=== PATIENT | male | born 1980 | race Caucasian/White ===

== ENCOUNTER 2024-09-21 07:35 | Emergency (ER) | payer OTHER, SELFPAY ==
[2024-09-21 07:40] VITALS: BP 158/87
[2024-09-21 07:57] VITALS: BMI 27.8
[2024-09-21 08:00] VITALS: BP 135/89
--- NOTE | 2024-09-21 08:11 | ED.GENMED ---
History of Present Illness
General
Chief Complaint: Abdominal Symptoms
Time Seen by Provider: 09/21/24 07:58
History of Present Illness
History of Present Illness:
43-year-old male with no significant past medical history presents the emergency department for evaluation of left inguinal pain and bulging for the past several days associated with constipation. He notes that he has felt a lump or bulge to the
groin for the past several weeks but it had not been painful until recently. Also reports left-sided low back pain with radicular symptoms into the left leg. No left leg paresthesias. No fevers or chills.
Past History
Past History
ED Past Medical History: None
ED Past Surgical History: None
Social History
Tobacco: Non-smoker
Alcohol: Occasional
Personal:
Living: with family
Employment: Employed
Review of Systems
Review of Systems
Allergies reviewed?: Yes
All Other Systems: ROS reviewed and negative except as documented in HPI and ROS
Phy Exam
Physical Exam
Physical Exam:
GEN: Well appearing, NAD, WDWN
HEENT: Oral mucosa moist, no scleral icterus
Cardiac: Regular rate
Lung: No respiratory distress, no tachypnea
Abdomen: Soft, grossly nontender.
: Soft reducible mass to the left inguinal region likely hernia, no rigidity, no adenopathy. No testicular or scrotal tenderness
MSK: No gross deformity or injuries
Skin: Good color, no pallor or jaundice, no rashes
Neuro: AO x3, moves all extremities freely
Psych: Calm, cooperative
Course
Orders/Labs/Results
Orders:
Orders
09/21/24 08:10
US Groin (Imaging Only) LT Urgent
Comment:
Reason For Exam: painful lump
09/21/24 07:52
09/21/24 07:52
Vital Signs
Initial and Last Documented VS:
Initial Vital Signs
Temp Pulse Resp BP Pulse Ox
98.6 F 72 16 158/87 98
09/21/24 07:40 09/21/24 07:40 09/21/24 07:40 09/21/24 07:40 09/21/24 07:40
Last Documented Vital Signs
Temp Pulse Resp BP Pulse Ox
98.6 F 76 18 125/70 99
09/21/24 07:40 09/21/24 09:14 09/21/24 09:14 09/21/24 09:14 09/21/24 09:14
MDM/Problems Addressed
MDM/Problems Addressed:
Patient's ultrasound is unremarkable, no evidence for hernia. Likely musculoskeletal etiology, discussed supportive care
*Pulse Oximetry
SaO2: 96
Oxygen Mode of Delivery: Room air
Patient hypoxic: no
*Critical Care Note
Total Time (30-74mins, 75-104mins- exclusive of procedures): Not Applicable
ED Attending Note
-
Portions of this chart may have been created with voice recognition software.� Occasional wrong word or��sound alike� substitutions may have occurred due to the inherent limitations of voice recognition software.
Discharge Plan
Departure
Patient Disposition: Home (Routine Discharge)
Date of Disposition: 09/21/24
Time of Disposition: 09:32
Patient with high blood pressure during this ER visit?: No
Discharge Problem:
Left groin pain
Instructions: Groin Strain ED
Prescriptions:
No Action
ondansetron 4 MG tablet,disintegrating
4 mg PO TIDPRN PRN (Reason: nausea/vomiting) Qty: 8 0RF
prednisone 10 MG tablet
10 mg PO .TAPER Qty: 45 0RF
Rx Instructions:
Take 50mg daily x3days, 40mg daily x3days,
30mg daily x3days, 20mg daily x3days,
10mg daily x3days
oxycodone-acetaminophen 5 MG/325 MG tablet
1 tab PO Q4HPRN PRN (Reason: pain) Qty: 12 0RF
Referrals:
Ken Chery DO [Family Provider, Family Practice]
Activity Restrictions/Additional Instructions:
Take 400-600mg ibuprofen every 6-8 hours for pain control
Ice often after vigorous activity
Use over the counter laxative such as Miralax to improve your bowel movements
Interventions
Interventions:
*Risk Screen - Suicide Last Done: 09/21/24 07:40
*General Assessment Last Done: 09/21/24 07:57
*Neglect/Abuse Screening Last Done: 09/21/24 07:40
*ED- Fall Risk Assessment Last Done: 09/21/24 07:57
*ED COVID-19 Vaccine History Last Done: 09/21/24 08:02
OS-Yrcrqa-Vpygkaumln Assessment Last Done: 09/21/24 07:57
Discharge Date and Time
Print Language: MAURITANIAN
[2024-09-21 09:13] VITALS: BP 125/70
[2024-09-21 09:14] VITALS: BP 125/70
--- NOTE | 2024-09-21 10:25 | EDRN ---
Patient discharged by Jerald Cho PA-C.
== END 2024-09-21 10:00 | disposition home or self-care (01) ==
LOC: EMR 07:35
PROVIDERS: EMERGENCY PHYSICIAN Emergency Medicine; FAMILY PHYSICIAN Family Medicine
DX: R10.32 Left lower quadrant pain (principal)
CPT/HCPCS: 99284; 76882

== ENCOUNTER 2024-12-17 16:24 | Emergency (ER) | payer OTHER, SELFPAY ==
[2024-12-17 16:26] VITALS: BP 144/87
[2024-12-17 16:44] LABS: Hematocrit 46.0 % (39.0-52.0); Hemoglobin 15.3 g/dL (13.0-18.0); Mean Corp Hgb Conc. 33.3 g/dL (33.0-37.0); Mean Corpuscular Volume 89.8 fL (80.0-94.0); Nucleated Red Blood Cells % 0 % (-); Platelet Count 287 10^3/uL (130-400); Red Cell Dist. Width 11.6 % (11.5-14.5)
[2024-12-17 16:59] LABS: Urine Character Clear (Clear)
[2024-12-17 17:06] LABS: ALT (SGPT) 55 U/L (0-50); AST (SGOT) 38 U/L (17-59); Albumin 5.1 g/dl (3.5-5.0); Alkaline Phosphatase 57 U/L (38-126); Blood Urea Nitrogen 13 mg/dl (9-20); Calcium 11.6 mg/dl (8.4-10.2); Carbon Dioxide 30 mmol/L (22-30); Chloride 102 mmol/L (98-107); Glucose 96 mg/dl (70-99); Potassium 4.3 mmol/L (3.5-5.1); Sodium > 250 mmol/L (135-145); Total Protein 8.1 g/dl (6.3-8.2); eGFR > 60.00
--- NOTE | 2024-12-17 18:05 | ED.GENMED ---
History of Present Illness
General
Chief Complaint: Abdominal Pain
Source: patient
Exam Limitations: none
Time Seen by Provider: 12/17/24 17:56
Nursing documentation reviewed up to this point in time: agreed with
History of Present Illness
History of Present Illness:
The patient is a pleasant 44-year-old man who comes in with complaints of left lower abdominal pain for 3 days. Patient reports he feels bloated. He has also noticed increased frequency of urination. He reports nausea and occasional diarrhea. He
denies fever. Patient reports he is having a routine colonoscopy this week.
Past History
Past History
ED Past Medical History: Psychiatric (Anxiety)
ED Past Surgical History: None
Social History
Tobacco: Non-smoker
Alcohol: Occasional
Drug: None
Personal:
Living: with family
Employment: Employed
Family History
Family History: Other
Review of Systems
Review of Systems
Allergies reviewed?: Yes
Constitutional: Reports no symptoms
EENT: Reports no symptoms
Respiratory: Reports no symptoms
Cardiac: Reports no symptoms
ABD/GI: Reports abdominal pain, nausea and diarrhea
: Reports frequency
Musculoskeletal: Reports no symptoms
Skin: Reports no symptoms
Neurological: Reports no symptoms
Endocrine: Reports no symptoms
Hematologic/Lymphatic: Reports no symptoms
Psychiatric: Reports no symptoms
Phy Exam
Physical Exam
Physical Exam:
Physical Exam
General: no apparent distress, not acutely ill. Well and comfortable appearing, smiling
Neck: supple. no meningeal signs. normal psoterior pharynx
Heart: s1/s2 regular rate and rhythm, no murmur. equal radial pulses.
Lungs: no acute respiratory distress. clear bilaterally
Abdomen: Soft. Left lower quadrant tenderness. No flank tenderness. No rebound or guarding. No pulsatile mass.
Neuro: alert and oriented. no focal neurological deficits
Skin: no rash
Psychiatric: well kept. interactive and cooperative
Extremities: no edema. no calf tenderness. negative homans. good distal pulses
Course
Orders/Labs/Results
Orders:
Orders
12/17/24 16:37
Complete Blood Count/With Diff Urgent
Comprehensive Metabolic Panel Urgent
Urinalysis Reflex To Culture Urgent
Date Specimen was Collected: 12/17/24
Time Specimen was Collected: 16:31
12/17/24 18:08
Sodium Urgent
12/17/24 18:13
CT Abd/pelvis W Iv Cont Urgent
Comment:
Reason For Exam: LLQ pain
Abnormal Lab Results
12/17/24
16:37
Absolute Monos (auto) 0.9 H 10^3/uL
(0.1-0.6)
Monocytes % 12.9 H %
(1.7-9.3)
Sodium > 250 H* mmol/L
(135-145)
Calcium 11.6 H mg/dl
(8.4-10.2)
ALT 55 H U/L
(0-50)
Albumin 5.1 H g/dl
(3.5-5.0)
12/17/24 16:37
12/17/24 18:08
Vital Signs
Initial and Last Documented VS:
Initial Vital Signs
Temp Pulse Resp BP Pulse Ox
98.5 F 86 16 144/87 99
12/17/24 16:26 12/17/24 16:26 12/17/24 16:26 12/17/24 16:26 12/17/24 16:26
Last Documented Vital Signs
Temp Pulse Resp BP Pulse Ox
98.5 F 70 16 133/92 99
12/17/24 16:26 12/17/24 20:15 12/17/24 20:15 12/17/24 19:19 12/17/24 18:14
MDM/Problems Addressed
Differential Diagnosis Includes:
Acute diverticulitis, renal colic, aortic aneurysm
MDM/Problems Addressed:
Patient presents with acute left lower abdominal pain
Acute Exacerbation and/or Progression of Chronic Illness:
Patient is elevated blood pressure, likely due to anxiety
Acute Exacerbation and/or Progression of Chronic Illness: HTN
*Radiology
Radiology exam reviewed: radiology read reviewed
*Pulse Oximetry
SaO2: 99
Oxygen Mode of Delivery: Room air
Patient hypoxic: no
*EKG
Interpreted by ED Provider?: NA
*Social Media Manager Interpretation
Rate: normal
Interpretation: normal
Rhythm: sinus
*Critical Care Note
Total Time (30-74mins, 75-104mins- exclusive of procedures): Not Applicable
Data Reviewed
Review of Other/Old Records Reveals: Radiology Studies (Groin ultrasound reviewed from 11/2024 which shows no acute disease)
Patient Management
Social determinants of health affecting care: Living situation and Strong social support
Escalation/DeEscalation of care consider admission/obs:
Patient remains well-appearing. Urine shows no sign of hematuria or infection. CT shows no sign of bowel obstruction or acute diverticulitis. Patient has follow-up with his GI doctor this for routine colonoscopy. Patient encouraged to
share his symptoms, CT report and lab work with his GI doctor prior to the colonoscopy.
ED Attending Note
-
Portions of this chart may have been created with voice recognition software.� Occasional wrong word or��sound alike� substitutions may have occurred due to the inherent limitations of voice recognition software.
Discharge Plan
Departure
Patient Disposition: Home (Routine Discharge)
Date of Disposition: 12/17/24
Time of Disposition: 21:02
Patient with high blood pressure during this ER visit?: Yes
Condition: Good
Covid-19: Not Applicable
Discharge Problem:
Abdominal pain, acute, left lower quadrant
Instructions: Abdominal Pain, BLOOD PRESSURE
Prescriptions:
No Action
calcium carbonate [Tums] 200 mg calcium (500 mg) Tablet,Chewable
200 mg PO BIDPRN PRN (Reason: gerd)
bupropion HCl [Wellbutrin XL] 150 mg Tablet Extended Release 24 Hr
150 mg PO DAILY
Referrals:
Ken Chery DO [Family Provider, Family Practice]
Activity Restrictions/Additional Instructions:
Follow-up with your [employer] principal this as scheduled and show your blood work and CAT scan report.
Return for any fever, worsening pain or vomiting
Interventions
Interventions:
*Risk Screen - Suicide Last Done: 12/17/24 16:26
*General Assessment Last Done: 12/17/24 16:26
*Neglect/Abuse Screening Last Done: 12/17/24 18:49
*ED- Fall Risk Assessment Last Done: 12/17/24 16:26
*ED COVID-19 Vaccine History Last Done: 12/17/24 18:49
*ED Influenza Vaccine History Last Done: 12/17/24 18:49
MJ-Hxjdya-Wjneqgeyvd Assessment Last Done: 12/17/24 18:49
Discharge Date and Time
Print Language: TAJIK
[2024-12-17 18:26] LABS: Sodium 140 mmol/L (135-145)
[2024-12-17 19:19] VITALS: BP 133/92
--- NOTE | 2024-12-17 19:24 | EDRN ---
Report received, updated patient on labs and status, will continue to monitor and update
[2024-12-17 19:31] VITALS: BMI 29.1
--- NOTE | 2024-12-17 19:31 | EDRN ---
Report received, introduced myself to patient and went over lab work, aware waiting for CT, will continue to update
[2024-12-17 20:50] VITALS: BP 142/93
[2024-12-17 21:00] VITALS: BP 141/84
== END 2024-12-17 21:12 | disposition home or self-care (01) ==
LOC: EMR 16:24
PROVIDERS: EMERGENCY PHYSICIAN Emergency Medicine; FAMILY PHYSICIAN Family Medicine
DX: R10.32 Left lower quadrant pain (principal); R03.0 Elevated blood-pressure reading, without diagnosis of hypertension; F41.9 Anxiety disorder, unspecified
CPT/HCPCS: 99284; 74177; 80053; 81003; 84295; 85025; Q9967